=== PATIENT | female | born 1955 | race Caucasian/White ===

== ENCOUNTER 2021-08-31 10:00 | Emergency (ER) | payer OTHER ==
--- OUTSIDE RECORDS SUMMARY | 2021-08-31 10:03 | XMS REPORT | Continuity of Care Document ---
:1955 Author Organization [facility] t Address [address] [place] [address] Care Team Providers Name Role Phone MARGARET_Yunior Attending Clinician Unavailable Hal Huerta Attending Clinician Unavailable Mima Admitting Clinician Unavailable Arron Buckley Admitting Clinician Unavailable Payers Payer Name Policy Type Policy Number Effective Date Expiration Date S gema OSBORN (MEDICARE [id number] 2020 REPLACEMENT PPO) 00:00:00 Problems This patient has no known problems. Allergies, Adverse Reactions, Alerts Allergy Allergy Status Severity Reaction(s) Onset Inactive Treating Comm ents Source Name Type Date Date Clinician No Known DA Active U 2019-0 [facility] 00:[facility]: d 00 [facility] No Known DA Active U 2019-0 [facility] 00:[facility]: d 00 [facility] No Known DA Active U 2019-0 [facility] Medications This patient has no known medications. Procedures This patient has no known procedures. Encounters Start End Encounter Admission Attending Care Care Encounter Source Date/Time Date/Time Type Type Clinicians Facility Department ID 2021-08-19 Outpatient MARGARET_TY_ PRIV PRIV [id number] 02-23 [facility] 20:42:39 [place] [id number] [facility] l 2020-04-04 2020-04-04 Outpatient BRITTANY Jones [id number] [facility] 12:00:00 12:00:00 Tariq [id number] [facility] Results Test Description Test Time Test Comments Results Result [facility] e Comments PELVIC WASHING 2018-12-16 07:08:00 RUN DATE: 12/16/18 [facility] PAGE 1 RUN TIME: 903 Specimen Inquiry RUN USER: INTERFACE PATIENT: VASQUEZ WHITNEY LOC: [facility] U #: [id number] AGE/SX: 63/F ROOM: RE12/12/18REG DR: Zara Buckley MD : 55 BED: DIS: STATUS: [facility] [place]: SPEC #: [id number] RECD: 12/12/18 STATUS: MOHIT REQ #: [id number] ADALGISA: 12/12/18- SUBM DR: Zara Buckley MD ENTERED: 12/12/18 SP TYPE: PELVIC WAS OTHR DR: ORDERED: CYTOLOGY/SACCOM CODES: [id number] - PELVIC GENITAL PROCEDURES: CYTOLOGY/SACCOM (Incomplete) TISSUES: PELVIC GENITAL STRUCTURES, NOS - PELVIC WASHINGS CLINICAL HISTORY 62 year old, pelvic mass, uterine cancer (kr) FINAL DIAGNOSIS Pelvic washings (cytospins): no malignant cells identified Tissue code 1 CPT code(s): 59533 pkg/kr dt: 12/16/18 GROSS DESCRIPTION The specimen is received in a container, labeled with the patient's name and designated "pelvic washings" and consists of approximately 40 cc of clear fluid. Two cytospins are made. No cell block is prepared. hj/nano 12/15/18 @ 0736 MICROSCOPIC DESCRIPTION The specimen consists of several groups of benign mesothelial cells and unremarkable hematopoietic cells. pkg/nano dt: 12/16/18 COMMENT: The corresponding surgical pathology [id number] showed: Uterus, hysterectomy, cervix - no involvement by carcinoma endomyometrium - endometrioid carcinoma, FIGO grade 2 tumor size: 2 cm greatest dimension - no cervical stromal involvement by tumor myometrial invasion: depth of invasion 9 mm/myometrial thickness 20 mm (less than 50%) - adenomyosis present with focal involvement by carcinoma - ER, VT, and MSI testing pending on block J (Addendum CONTINUED ON NEXT PAGE RUN DATE: 12/16/18 [facility] PAGE 2 RUN TIME: 903 Specimen Inquiry RUN USER: INTERFACE SPEC #: [id number] PATIENT: VASQUEZ WHITNEYGERALD #[id number] (Continued) MICROSCOPIC DESCRIPTION (Continued) Report to follow) serosa - no pathologic diagnosis Ovary and fallopian tube, right, resection - benign simple cyst Ovary and fallopian tube, left, resection - corpora albicans gonzalo/kr dt: 12/15/18 ------- Signed Laura Reilly 12/16/18 0708 END OF REPORT UTERUS W/WO 2018-12-15 TUB/OVA 17:45:00 NEOPLASTIC RUN DATE: 12/16/18 [facility] PAGE 1 RUN TIME: 622 Specimen Inquiry RUN USER: INTERFACE PATIENT: VASQUEZ WHITNEY LOC: [facility] U #: [id number] AGE/SX: 63/F ROOM: RE12/12/18REG DR: Zara Buckley MD : 55 BED: DIS: STATUS: [facility] TLOC: SPEC #: [id number] RECD: 12/12/18 STATUS: MOHIT RE #: [id number] ADALGISA: 12/12/18- SUBM DR: Zara Buckley MD ENTERED: 12/12/18 SP TYPE: UTERNEO OTHR DR: ORDERED: LEVEL SURGIC, FROZEN SECTION, FROZEN ADD CODES: [id number] - UTERUS, NOS PROCEDURES: LEVEL SURGIC (Incomplete) FROZEN SECTION (Incomplete) FROZEN ADD (Incomplete) TISSUES: UTERUS, NOS - UTERUS, CERVIX, BILATERAL FALLOPIAN TUBES AND OVARIES CLINICAL HISTORY 62 year old, pelvic mass, uterine cancer (kr) FINAL DIAGNOSIS Uterus, hysterectomy, cervix - no involvement by carcinoma endomyometrium - endometrioid carcinoma, FIGO grade 2 tumor size: 2 cm greatest dimension - no cervical stromal involvement by tumor myometrial invasion: depth of invasion 9 mm/myometrial thickness 20 mm (less than 50%) - adenomyosis present with focal involvement by carcinoma - ER, VT, and MSI testing pending on block J (Addendum Report to follow) serosa - no pathologic diagnosis Ovary and fallopian tube, right, resection - benign simple cyst Ovary and fallopian tube, left, resection - corpora albicans ADDENDUM PENDING, SPECIMEN IS BEING SENT TO [facility] Tissue code 1 CPT code(s): 46589 cds/kr dt: 12/15/18 GROSS DESCRIPTION ANATOMIC SOURCE OF TISSUE (per Requisition): Uterus, cervix, bilateral tubes and ovaries (frozen on endometrium and right ovary) The specimen received without fixative in a container labeled with the patient's name is designated "uterus, cervix, bilateral tubes and ovaries". The specimen CONTINUED ON NEXT PAGE RUN DATE: 12/16/18 [facility] PAGE 2 RUN TIME: 622 Specimen Inquiry RUN USER: INTERFACE SPEC #: [id number] PATIENT: VASQUEZ WHITNEYGERALD #[id number] (Continued) GROSS DESCRIPTION (Continued) consists of a 93 gm, 7.5 x 4.0 x 4.0 cm intact uterus with an attached cervix, fimbriated fallopian tubes (right 8.5 cm in length and left 7.0 cm in length) and ovaries (right 7.5 x 7.5 x 3.0 cm and left 2.0 cm). The right ovarian stroma displays a 7.0 cm unilocular cystic structure containing clear serous fluid. The cyst lining is trabeculated. There are no identifiable excrescences. The cut surfaces of the cyst wall are lopez, firm, and thickened. The myometrium, directly adjacent to the posterior endometrium displays a 2.0 x 0.6 x 0.5 cm ill-defined area, which involves the inner one half of the myometrium (7 mm at 20 mm). The lesion does not appear to involve the endometrium. The uterine serosa is lopez-pink, hyperemic and slightly nodular. The 3 cm ectocervix displays a central 1 cm slit-like os. The lower uterine segment is lopez-pink and focally indurated. The endometrium is lopez and focally hemorrhagic with a thickness measuring up to 0.1 cm. The myometrium is extensively trabeculated with a wall thickness measuring up to 2.0 cm. The fallopian tubes are pink-purple and hyperemic with pin-point lumens. The ovarian stroma is lopez and firm with a few clear, serous fluid-filled unilocular cystic structures, 0.2 to 0.3 cm. Section code: FS1 - endometrium, FS2 - ovary, A through C - additional right ovarian lesion, D and E - anterior cervix, F and G - posterior cervix, H and I - remainder of anterior endomyometrium, J through L - remainder of posterior endomyometrium, M - sales representative girls' apparel sections of right fallopian tube, N - sales representative girls' apparel sections of left adnexa. obi/nano 12/12/18 @ 5020 MICROSCOPIC DESCRIPTION Permanent sections of the posterior endometrium show an endometrioid adenocarcinoma (FIGO grade 2) (architectural grade 1 and nuclear grade 2 - 3). Tumor invades the posterior myometrium to a depth of 9 mm where myometrium is 20 mm thick (inner one half). No lymphvascular invasion is identified. There is no involvement of the endocervix. Procedure: Total hysterectomy and bilateral salpingo-oophorectomy Specimen integrity: Intact Tumor site: Endometrium, posterior wall Tumor size: Greatest dimension 2 cm Histologic type: Endometrioid carcinoma, NOS Histologic grade: FIGO grade 2 Myometrial invasion: Present Depth of invasion: 9 mm/20 mm myometrial thickness - less than 50% myometrial invasion Adenomyosis: Present, uninvolved by carcinoma Uterine serosal involvement: Not identified Lower uterine segment involvement: Not identified Cervical stromal involvement: Not identified Other tissues/organ involvement: Not identified Lymphvascular space invasion: Not identified CONTINUED ON NEXT PAGE RUN DATE: 12/16/18 [facility] PAGE 3 RUN TIME: 622 Specimen Inquiry RUN USER: INTERFACE SPEC #: [id number] PATIENT: VASQUEZ WHITNEY #[id number] (Continued) MICROSCOPIC DESCRIPTION (Continued) Lymph nodes: No lymph nodes submitted Pathologic TNM classification: Primary Tumor: pT1a Regional Lymph nodes: pNx Ancillary studies: ER/VT and MSI testing on block J COMMENT: No malignancy is identified on the original frozen section. Endometrioid carcinoma is identified because the entire endometrium was submitted for completely examination histologically. Dr. Buckley was called and notified of the findings, 12/15/18, 3:00 PM. gonzalo/nano dt: 12/15/18 ------- Signed Sukhdev Simons 12/15/18 1745 END OF REPORT RITA W/WO 2018-12-15 TUB/OVA 17:45:00 NEOPLASTIC RUN DATE: 12/18/18 [facility] PAGE 1 RUN TIME: 1118 Specimen Inquiry RUN USER: INTERFACE PATIENT: VASQUEZ WHITNEY LOC: [facility] U #: [id number] AGE/SX: 63/F ROOM: RE12/12/18REG DR: Zara Buckley MD : 55 BED: DIS: STATUS: [facility] TLOC: SPEC #: [id number] RECD: 12/12/18 STATUS: SOUShravan REQ #: [id number] ADALGISA: 12/12/18- SUBM DR: Zara Buckley MD ENTERED: 12/12/18 SP TYPE: UTERNEO OTHR DR: ORDERED: LEVEL SURGIC, FROZEN SECTION, FROZEN ADD ADDENDUM FINDINGS Addendum #1 Entered: 12/18/18 The following results are received from [facility], [place], [place] on December 18, 2018. BODY SITE: Uterus [id number]-1504-J HISTOLOGY IMAGE ANALYSIS, GLOBAL INTERPRETATION: Most of the estrogen and progesterone positive staining is concentrated in a less well-differentiated portion of the tumor and the percentages below are the percentages of positive cells of the total tumor. ER: POSITIVE Tumor Stained: 20% Intensity: 3+ Internal Control: Present, positive PgR: POSITIVE Tumor Stained: 10% Intensity: 2+ Internal Control: Present, positive COMMENT: Specimen handling met the requirements specified in the latest version of the ASCO/CAP guidelines. I acknowledge the above findings. CDevaughn Simons M.D., Pathologist/ksr December 18, 2018 @ 0649 CONTINUED ON NEXT PAGE RUN DATE: 12/18/18 [facility] PAGE 2 RUN TIME: 1117 Specimen Inquiry RUN USER: INTERFACE SPEC #: [id number] PATIENT: DEVONTEVASQUEZ MAN #[id number] (Continued) ADDENDUM FINDINGS (Continued) Addendum Signed Sukhdev Simons 12/18/181117 (prelim) Sukhdev Simons 12/18/181117 CODES: [id number] - UTERUS, NOS PROCEDURES: LEVEL SURGIC (Incomplete) FROZEN SECTION (Incomplete) FROZEN ADD (Incomplete) TISSUES: UTERUS, NOS - UTERUS, CERVIX, BILATERAL FALLOPIAN TUBES AND OVARIES CLINICAL HISTORY 62 year old, pelvic mass, uterine cancer (kr) FINAL DIAGNOSIS Uterus, hysterectomy, cervix - no involvement by carcinoma endomyometrium - endometrioid carcinoma, FIGO grade 2 tumor size: 2 cm greatest dimension - no cervical stromal involvement by tumor myometrial invasion: depth of invasion 9 mm/myometrial thickness 20 mm (less than 50%) - adenomyosis present with focal involvement by carcinoma - ER, VT, and MSI testing pending on block J (Addendum Report to follow) serosa - no pathologic diagnosis Ovary and fallopian tube, right, resection - benign simple cyst Ovary and fallopian tube, left, resection - corpora albicans ADDENDUM PENDING, SPECIMEN IS BEING SENT TO [facility] Tissue code 1 CPT code(s): 43324 cds/kr dt: 12/15/18 GROSS DESCRIPTION ANATOMIC SOURCE OF TISSUE (per Requisition): Uterus, cervix, bilateral tubes and ovaries (frozen on endometrium and right ovary) The specimen received without fixative in a container labeled with the patient's name is designated "uterus, cervix, bilateral tubes and ovaries". The specimen CONTINUED ON NEXT PAGE RUN DATE: 12/18/18 [facility] PAGE 3 RUN TIME: 1118 Specimen Inquiry RUN USER: INTERFACE SPEC #: [id number] PATIENT: VASQUEZ WHITNEY #[id number] (Continued) GROSS DESCRIPTION (Continued) consists of a 93 gm, 7.5 x 4.0 x 4.0 cm intact uterus with an attached cervix, fimbriated fallopian tubes (right 8.5 cm in length and left 7.0 cm in length) and ovaries (right 7.5 x 7.5 x 3.0 cm and left 2.0 cm). The right ovarian stroma displays a 7.0 cm unilocular cystic structure containing clear serous fluid. The cyst lining is trabeculated. There are no identifiable excrescences. The cut surfaces of the cyst wall are lopez, firm, and thickened. The myometrium, directly adjacent to the posterior endometrium displays a 2.0 x 0.6 x 0.5 cm ill-defined area, which involves the inner one half of the myometrium (7 mm at 20 mm). The lesion does not appear to involve the endometrium. The uterine serosa is lopez-pink, hyperemic and slightly nodular. The 3 cm ectocervix displays a central 1 cm slit-like os. The lower uterine segment is lopez-pink and focally indurated. The endometrium is lopez and focally hemorrhagic with a thickness measuring up to 0.1 cm. The myometrium is extensively trabeculated with a wall thickness measuring up to 2.0 cm. The fallopian tubes are pink-purple and hyperemic with pin-point lumens. The ovarian stroma is lopez and firm with a few clear, serous fluid-filled unilocular cystic structures, 0.2 to 0.3 cm. Section code: FS1 - endometrium, FS2 - ovary, A through C - additional right ovarian lesion, D and E - anterior cervix, F and G - posterior cervix, H and I - remainder of anterior endomyometrium, J through L - remainder of posterior endomyometrium, M - sales representative girls' apparel sections of right fallopian tube, N - sales representative girls' apparel sections of left adnexa. obi/nano 12/12/18 @ 6449 MICROSCOPIC DESCRIPTION Permanent sections of the posterior endometrium show an endometrioid adenocarcinoma (FIGO grade 2) (architectural grade 1 and nuclear grade 2 - 3). Tumor invades the posterior myometrium to a depth of 9 mm where myometrium is 20 mm thick (inner one half). No lymphvascular invasion is identified. There is no involvement of the endocervix. Procedure: Total hysterectomy and bilateral salpingo-oophorectomy Specimen integrity: Intact Tumor site: Endometrium, posterior wall Tumor size: Greatest dimension 2 cm Histologic type: Endometrioid carcinoma, NOS Histologic grade: FIGO grade 2 Myometrial invasion: Present Depth of invasion: 9 mm/20 mm myometrial thickness - less than 50% myometrial invasion Adenomyosis: Present, uninvolved by carcinoma Uterine serosal involvement: Not identified Lower uterine segment involvement: Not identified Cervical stromal involvement: Not identified Other tissues/organ involvement: Not identified Lymphvascular space invasion: Not identified CONTINUED ON NEXT PAGE RUN DATE: 12/18/18 [facility] PAGE 4 RUN TIME: 1118 Specimen Inquiry RUN USER: INTERFACE SPEC #: [id number] PATIENT: DEVONTEVASQUEZ MOISES #[id number] (Continued) MICROSCOPIC DESCRIPTION (Continued) Lymph nodes: No lymph nodes submitted Pathologic TNM classification: Primary Tumor: pT1a Regional Lymph nodes: pNx Ancillary studies: ER/VT and MSI testing on block J COMMENT: No malignancy is identified on the original frozen section. Endometrioid carcinoma is identified because the entire endometrium was submitted for completely examination histologically. Dr. Buckley was called and notified of the findings, 12/15/18, 3:00 PM. gonzalo/nano dt: 12/15/18 ------- Signed Sukhdev Simons 12/15/18 1745 END OF REPORT UTERUS W/WO 2018-12-15 TUB/OVA 17:45:00 NEOPLASTIC RUN DATE: 12/22/18 [facility] PAGE 1 RUN TIME: 956 Specimen Inquiry RUN USER: INTERFACE PATIENT: VASQUEZ WHITNEY LOC: [facility] U #: [id number] AGE/SX: 63/F ROOM: RE12/12/18REG DR: Zara Buckley MD : 55 BED: DIS: STATUS: [facility] [place] TLOC: SPEC #: [id number] RECD: 12/12/18 STATUS: MOHIT SHAHID #: [id number] ADALGISA: 12/12/18- SUBM DR: Zara Buckley MD ENTERED: 12/12/18 SP TYPE: UTERNEO OTHR DR: ORDERED: LEVEL SURGIC, FROZEN SECTION, FROZEN ADD ADDENDUM FINDINGS Addendum #2 Entered: 12/22/18 The following is the final MSI report received from [facility], December 22, 2018. RESULTS: MSI Not Detected Instability level - Instability Not Detected COMMENTS: This tumor showed no microsatellite instability by PCR. It is unlikely that this patient has Palomo syndrome (hereditary non-polyposis colorectal cancer, HNPCC). A small percentage of uterine adenocarcinoma in HNPCC patients are microsatellite stable. Microsatellite stability in this neoplasm is typically associated with expression of the main mistmatch repair proteins (MLH1, MSH2, MSH6 and PMS2). I acknowledge the above findings. CDevaughn Simons M.D., Pathologist/ksr December 22, 2018 @ 0833 Addendum Signed Sukhdev Simons 12/22/18 0957 (prelim) Sukhdev Simons 12/22/18 0957 Addendum #1 Entered: 12/18/18-649 The following results are received from [facility], [place], [place] on December 18, 2018. BODY SITE: Uterus 19SW-1504-J HISTOLOGY IMAGE ANALYSIS, GLOBAL CONTINUED ON NEXT PAGE RUN DATE: 12/22/18 [facility] PAGE 2 RUN TIME: 57 Specimen Inquiry RUN USER: INTERFACE SPEC #: [id number] PATIENT: VASQUEZ WHITNEY #[id number] (Continued) ADDENDUM FINDINGS (Continued) INTERPRETATION: Most of the estrogen and progesterone positive staining is concentrated in a less well-differentiated portion of the tumor and the percentages below are the percentages of positive cells of the total tumor. ER: POSITIVE Tumor Stained: 20% Intensity: 3+ Internal Control: Present, positive PgR: POSITIVE Tumor Stained: 10% Intensity: 2+ Internal Control: Present, positive COMMENT: Specimen handling met the requirements specified in the latest version of the ASCO/CAP guidelines. I acknowledge the above findings. Leon Simons M.D., Pathologist/ksr December 18, 2018 @ 0649 Addendum Signed Sukhdev Valencia 12/18/18 1118 (prelim) Sukhdev Valencia 12/18/18 1118 CODES: [id number] - UTERUS, NOS PROCEDURES: LEVEL SURGIC (Incomplete) FROZEN SECTION (Incomplete) FROZEN ADD (Incomplete) TISSUES: UTERUS, NOS - UTERUS, CERVIX, BILATERAL FALLOPIAN TUBES AND OVARIES CLINICAL HISTORY 62 year old, pelvic mass, uterine cancer (kr) CONTINUED ON NEXT PAGE RUN DATE: 12/22/18 [facility] PAGE 3 RUN TIME: 956 Specimen Inquiry RUN USER: INTERFACE SPEC #: [id number] PATIENT: DEVONTEVASQUEZ MOISES #[id number] (Continued) FINAL DIAGNOSIS Uterus, hysterectomy, cervix - no involvement by carcinoma endomyometrium - endometrioid carcinoma, FIGO grade 2 tumor size: 2 cm greatest dimension - no cervical stromal involvement by tumor myometrial invasion: depth of invasion 9 mm/myometrial thickness 20 mm (less than 50%) - adenomyosis present with focal involvement by carcinoma - ER, VT, and MSI testing pending on block J (Addendum Report to follow) serosa - no pathologic diagnosis Ovary and fallopian tube, right, resection - benign simple cyst Ovary and fallopian tube, left, resection - corpora albicans ADDENDUM PENDING, SPECIMEN IS BEING SENT TO [facility] Tissue code 1 CPT code(s): 66126 cds/kr dt: 12/15/18 GROSS DESCRIPTION ANATOMIC SOURCE OF TISSUE (per Requisition): Uterus, cervix, bilateral tubes and ovaries (frozen on endometrium and right ovary) The specimen received without fixative in a container labeled with the patient's name is designated "uterus, cervix, bilateral tubes and ovaries". The specimen consists of a 93 gm, 7.5 x 4.0 x 4.0 cm intact uterus with an attached cervix, fimbriated fallopian tubes (right 8.5 cm in length and left 7.0 cm in length) and ovaries (right 7.5 x 7.5 x 3.0 cm and left 2.0 cm). The right ovarian stroma displays a 7.0 cm unilocular cystic structure containing clear serous fluid. The cyst lining is trabeculated. There are no identifiable excrescences. The cut surfaces of the cyst wall are lopez, firm, and thickened. The myometrium, directly adjacent to the posterior endometrium displays a 2.0 x 0.6 x 0.5 cm ill-defined area, which involves the inner one half of the myometrium (7 mm at 20 mm). The lesion does not appear to involve the endometrium. The uterine serosa is lopez-pink, hyperemic and slightly nodular. The 3 cm ectocervix displays a central 1 cm slit-like os. The lower uterine segment is lopez-pink and focally indurated. The endometrium is lopez and focally hemorrhagic with a thickness measuring up to 0.1 cm. The myometrium is extensively trabeculated with a wall thickness measuring up to 2.0 cm. The fallopian tubes are pink-purple and hyperemic with pin-point lumens. The ovarian stroma is lopez and firm with a few clear, serous fluid-filled unilocular cystic structures, 0.2 to 0.3 cm. Section code: FS1 - endometrium, FS2 - ovary, A through C - additional right ovarian lesion, D and E - anterior cervix, F and G - posterior cervix, H and I - CONTINUED ON NEXT PAGE RUN DATE: 12/22/18 [facility] PAGE 4 RUN TIME: 956 Specimen Inquiry RUN USER: INTERFACE SPEC #: [id number] PATIENT: VASQEUZ WHITNEY #[id number] (Continued) GROSS DESCRIPTION (Continued) remainder of anterior endomyometrium, J through L - remainder of posterior endomyometrium, M - sales representative girls' apparel sections of right fallopian tube, N - sales representative girls' apparel sections of left adnexa. obi/nano 12/12/18 @ 1013 MICROSCOPIC DESCRIPTION Permanent sections of the posterior endometrium show an endometrioid adenocarcinoma (FIGO grade 2) (architectural grade 1 and nuclear grade 2 - 3). Tumor invades the posterior myometrium to a depth of 9 mm where myometrium is 20 mm thick (inner one half). No lymphvascular invasion is identified. There is no involvement of the endocervix. Procedure: Total hysterectomy and bilateral salpingo-oophorectomy Specimen integrity: Intact Tumor site: Endometrium, posterior wall Tumor size: Greatest dimension 2 cm Histologic type: Endometrioid carcinoma, NOS Histologic grade: FIGO grade 2 Myometrial invasion: Present Depth of invasion: 9 mm/20 mm myometrial thickness - less than 50% myometrial invasion Adenomyosis: Present, uninvolved by carcinoma Uterine serosal involvement: Not identified Lower uterine segment involvement: Not identified Cervical stromal involvement: Not identified Other tissues/organ involvement: Not identified Lymphvascular space invasion: Not identified Lymph nodes: No lymph nodes submitted Pathologic TNM classification: Primary Tumor: pT1a Regional Lymph nodes: pNx Ancillary studies: ER/VT and MSI testing on block J COMMENT: No malignancy is identified on the original frozen section. Endometrioid carcinoma is identified because the entire endometrium was submitted for completely examination histologically. Dr. Buckley was called and notified of the findings, 12/15/18, 3:00 PM. gonzalo/nano dt: 12/15/18 ------- Signed Sukhdev Simons 12/15/18 1745 END OF REPORT - XR CHEST 2 V 2018-12-08 Patient Name: 13:52:00 VASQUEZ WHITNEY Unit No: [id number] EXAMS: CPT CODE: [id number] XR CHEST 2 V [id number] CHEST RADIOGRAPHS - PA AND LATERAL: COMPARISON: None CLINICAL HISTORY: PRE-OP uterine cancer The cardiopericardial silhouette is within normal limits. Lungs are clear. No vascular congestion or pneumothorax. There are spondylotic changes in the thoracic spine. IMPRESSION: No acute pulmonary abnormality. at 1354 Reported and signed by: Mohit Beach MD CC: Zara Buckley Technologist: RT Patricia Trnscrbd D/ ([id number]) [id number] Orig Print D/T: S: 12/08/2018 (0027) [facility] NAME: VASQUEZ WHITNEY MOISES Radiology Department PHYS: Zara Durán MD [address] : 1955 AGE: 62 SEX: F [place], [place] [address] LOC: [facility] PHONE #: [phone] EXAM DATE: 12/08/2018 STATUS: PRE SD FAX #: [phone] RAD NO: [id number] Page 1 Signed Report
--- NOTE | 2021-08-31 10:53 | EDPHYS ---
Physician Documentation [facility] Name: Glory Troncoso Age: 65 yrs Sex: Female : 1955 Arrival Date: 08/31/2021 Time: 10:01 Bed 20 Private MD: Claude Worrell B ED Physician Kimmie Swan HPI: 08/31 10:51 This 65 yrs old Female presents to ER via Ambulatory with complaints of Sore Throat. ma2 10:51 The patient presents with sore throat. The patient describes throat pain as constant. ma2 Onset: The symptoms/episode began/occurred suddenly, 1 day(s) ago. Severity of symptoms: At their worst the symptoms were mild, in the emergency department the symptoms are unchanged. The patient has not experienced similar symptoms in the past. Historical: - Allergies: 10:13 No Known Allergies; vg1 - Home Meds: 10:13 Lunesta oral [Active]; Clonazepam Oral [Active]; Lexapro Oral [Active]; vg1 - PMHx: 10:13 Anxiety; Depressive disorder; vg1 - Immunization history:: Client reports receiving the 2nd dose of the Covid vaccine. - Social history:: Smoking status: Patient denies any tobacco usage or history of. Patient/guardian denies using alcohol, street drugs, The patient lives with family. - Family history:: not pertinent. ROS: 10:51 Constitutional: Negative for fever, chills, and weight loss. ma2 10:51 All other systems are negative. Exam: 10:51 Constitutional: This is a well developed, well nourished patient who is awake, alert, ma2 and in no acute distress. Head/Face: Normocephalic, atraumatic. Eyes: Pupils equal round and reactive to light, extra-ocular motions intact. Lids and lashes normal. Conjunctiva and sclera are non-icteric and not injected. Cornea within normal limits. Periorbital areas with no swelling, redness, or edema. ENT: tonsillitis, otherwise Nares patent. No nasal discharge, no septal abnormalities noted. Tympanic membranes are normal and external auditory canals are clear. Oropharynx with no redness, swelling, or masses, exudates, or evidence of obstruction, uvula midline. Mucous membranes moist. Neck: Trachea midline, no thyromegaly or masses palpated, and no cervical lymphadenopathy. Supple, full range of motion without nuchal rigidity, or vertebral point tenderness. No Meningismus. Chest/axilla: Normal chest wall appearance and motion. Nontender with no deformity. No lesions are appreciated. Cardiovascular: Regular rate and rhythm with a normal S1 and S2. No gallops, murmurs, or rubs. Normal PMI, no JVD. No pulse deficits. Respiratory: Lungs have equal breath sounds bilaterally, clear to auscultation and percussion. No rales, rhonchi or wheezes noted. No increased work of breathing, no retractions or nasal flaring. Back: No spinal tenderness. No costovertebral tenderness. Full range of motion. Vital Signs: 10:11 BP 122 / 77; Pulse 87; Resp 16; Temp 98.4; Pulse Ox 100% ; Weight 56.7 kg; Height 5 ft. vg1 2 in. (157.48 cm); Pain 5/10; 10:15 BP 128 / 81; Pulse 85; Resp 16; Pulse Ox 99% on R/A; sl2 11:30 BP 115 / 75; Pulse 85; Resp 18; Pulse Ox 100% ; sl2 10:11 Body Mass Index 22.86 (56.70 kg, 157.48 cm) vg1 MDM: 10:12 Patient medically screened. ma2 10:51 Differential diagnosis: bronchitis, mononucleosis, pharyngitis. Data reviewed: vital ga2 signs, nurses notes. Counseling: I had a detailed discussion with the patient and/or guardian regarding: the historical points, exam findings, and any diagnostic results supporting the discharge/admit diagnosis, the presence of at least one elevated blood pressure reading (>120/80) during this emergency department visit, the need for outpatient follow up. Response to treatment: the patient's symptoms have markedly improved after treatment. 08/31 10:13 Order name: Strep; Complete Time: 10:50 em1 Administered Medications: 11:06 Drug: Augmentin (Amoxicillin-Clavulanate) 875 mg Route: PO; sl2 11:20 Follow up: Response: No adverse reaction 2 11:06 Drug: Augmentin (Amoxicillin-Clavulanate) 875 mg Route: PO; sl2 11:20 Follow up: Response: No adverse reaction 2 Disposition Summary: 08/31/21 10:53 Discharge Ordered Location: Home ma2 Condition: Stable ma2 Diagnosis - Streptococcal tonsillitis ma2 Followup: ma2 - With: Private Physician - When: Tomorrow - Reason: If symptoms return Discharge Instructions: - Discharge Summary Sheet ma2 - Strep Throat, Adult, [id number] ma2 Forms: - Medication Reconciliation Form ma2 - Thank You Letter ma2 - Antibiotic Education ma2 - Prescription Opioid Use ma2 Prescriptions: - Augmentin 875-125 mg Oral Tablet - take 1 tablet by ORAL route every 12 hours for 10 days; 20 tablet; Refills: 0, ma2 Product Selection Permitted Signatures: Dispatcher [employer] EDKimmie Leary MD MD ma2 Maria Guadalupe Landon RN RN vg1 Edelmira Salazar RN RN sl2
--- NOTE | 2021-08-31 10:53 | ER ---
Nurse's Notes [facility] Name: Glory Troncoso Age: 65 yrs Sex: Female : 1955 Arrival Date: 08/31/2021 Time: 10:01 Bed 20 Private MD: Claude Worrell B Diagnosis: Streptococcal tonsillitis Presentation: 08/31 10:11 Chief complaint: Patient states: Sore throat since yesterday. States hurts when taking vg1 a swallow and states 'throat feels swollen'. Denies cough or congestion. Coronavirus screen: Vaccine status: Patient reports receiving the 2nd dose of the covid vaccine. Client denies travel out of the [place] in the last 14 days. Ebola Screen: Patient negative for fever greater than or equal to 101.5 degrees Fahrenheit, and additional compatible Ebola Virus Disease symptoms. Initial Sepsis Screen: Does the patient meet any 2 criteria? No. Patient's initial sepsis screen is negative. Does the patient have a suspected source of infection? No. Patient's initial sepsis screen is negative. Risk Assessment: Do you want to hurt yourself or someone else? Patient reports no desire to harm self or others. Onset of symptoms was August 30, 2021. 10:11 Method Of Arrival: Ambulatory vg1 10:11 Acuity: RAQUEL 4 vg1 Triage Assessment: 10:13 General: Appears in no apparent distress. comfortable, Behavior is calm, cooperative. vg1 Pain: Complains of pain in throat. EENT: Throat is reddened has patchy exudate has enlarged tonsils. Historical: - Allergies: 10:13 No Known Allergies; vg1 - Home Meds: 10:13 Lunesta oral [Active]; Clonazepam Oral [Active]; Lexapro Oral [Active]; vg1 - PMHx: 10:13 Anxiety; Depressive disorder; vg1 - Immunization history:: Client reports receiving the 2nd dose of the Covid vaccine. - Social history:: Smoking status: Patient denies any tobacco usage or history of. Patient/guardian denies using alcohol, street drugs, The patient lives with family. - Family history:: not pertinent. Screenin:35 Abuse screen: Denies threats or abuse. Denies injuries from another. sl2 10:35 Nutritional screening: No deficits noted. Tuberculosis screening: No symptoms or risk sl2 factors identified. Fall Risk None identified. Assessment: 10:30 Respiratory: Airway is patent Trachea midline Respiratory effort is even, unlabored, sl2 Breath sounds are clear bilaterally. Vital Signs: 10:11 BP 122 / 77; Pulse 87; Resp 16; Temp 98.4; Pulse Ox 100% ; Weight 56.7 kg; Height 5 ft. vg1 2 in. (157.48 cm); Pain 5/10; 10:15 BP 128 / 81; Pulse 85; Resp 16; Pulse Ox 99% on R/A; sl2 11:30 BP 115 / 75; Pulse 85; Resp 18; Pulse Ox 100% ; sl2 10:11 Body Mass Index 22.86 (56.70 kg, 157.48 cm) vg1 ED Course: 10:01 Patient arrived in ED. ds1 10:01 Claude Worrell MD is Private Physician. ds1 10:12 Kimmie Swan MD is Attending Physician. ma2 10:13 Triage completed. vg1 10:13 Arm band placed on. vg1 10:19 Strep swab sent to lab. 5 10:20 Patient has correct armband on for positive identification. Bed in low position. Call 5 light in reach. Pulse ox on. NIBP on. 10:20 Strep Sent. 5 10:35 No provider procedures requiring assistance completed. Inserted sl2 10:37 Edelmira Salazar, COLBY is Primary Nurse. sl2 Administered Medications: 11:06 Drug: Augmentin (Amoxicillin-Clavulanate) 875 mg Route: PO; sl2 11:20 Follow up: Response: No adverse reaction sl2 11:06 Drug: Augmentin (Amoxicillin-Clavulanate) 875 mg Route: PO; sl2 11:20 Follow up: Response: No adverse reaction sl2 Outcome: 10:53 Discharge ordered by . ma2 11:40 Discharged to home ambulatory. sl2 11:40 Condition: stable 11:40 Discharge instructions given to patient, Instructed on discharge instructions, follow up and referral plans. medication usage, Demonstrated understanding of instructions, follow-up care, medications, Prescriptions given X 1. 11:50 Patient left the ED. sl2 Signatures: Lizeth Watson ds1 Ramona Villatoro 5 Kimmie Swan MD MD la2 Maria Guadalupe Landon RN RN vg1 Edelmira Salazar, COLBY RN sl2
[2021-08-31] MEDS ORDERED: AMOX/K CLAV 875 MG TAB ONE (11:02)
[2021-08-31 12:14] VITALS: TEMP 98.4
[2021-08-31 12:16] VITALS: BP 115/75; O2SAT 100
== END 2021-08-31 11:50 | disposition home or self-care (01) ==
LOC: ER 10:00
DX: J03.00 Acute streptococcal tonsillitis, unspecified (principal); F32.A Depression, unspecified
CPT/HCPCS: 87081; 99284

== ENCOUNTER 2025-01-14 19:27 | Emergency (ER) | payer OTHER ==
[2025-01-14] MEDS ORDERED: ACETAMINOPHEN 500 MG TAB ONE (21:26)
--- NOTE | 2025-01-14 22:03 | RAD REPORT ---
EXAM: CT brain without contrast HISTORY: fall COMPARISON: None TECHNIQUE: Multiple contiguous axial images were obtained and a CT of the brain without contrast. Sag ittal and coronal reformats were performed. FINDINGS: No evidence of hydrocephalus, intracranial hemorrhage, or extra-axial fluid collection. The brain is normal in morphology. The calvarium is intact. The visualized paranasal sinuses and mastoid air cells are essentially clear . IMPRESSION: No evidence of acute intracranial abnormality. EXAM: CT of the cervical spine without contrast HISTORY: fall COMPARISON: None TECHNIQUE: Multiple contiguous axial images were obtained in a CT of the cervical spine without contr ast. Sagittal and coronal reformats were performed. FINDINGS: The vertebral bodies demonstrate normal height and alignment. No evidence of acute fracture or subluxation.. Facet arthropathy most pronounced at C3-4 on the left, and C4-5 on the right, with milder uncovertebral joint spurring, contributing to up to moderate degrees of neural foraminal narrowing at those levels. No prevertebral soft tissue swelling is seen. The posterior facets are well aligned. Normal alignment of the skull base with the cervical spine is seen. The lung apices are unremarkable. IMPRESSION: No evidence of acute osseous abnormality of the cervical spine. Degenerative changes as above.
--- NOTE | 2025-01-14 22:06 | RAD REPORT ---
EXAMINATION: CT MAXILLOFACIAL WITHOUT CONTRAST CLINICAL INDICATION: [facility] MAIN fall Bed Name: IW2 TECHNIQUE: Axial images were obtained through the facial bones and orbits without intravenous contras t. Sagittal and coronal reconstructions were created from the data. One or more of the following dose reduction techniques were used: Automated exposure control, adjustment of the mA and/or kV accor ding to patient size, and/or iterative reconstruction. Unless otherwise specified, incidental findings do not require dedicated imaging follow-up. COMPARISON: No prior exam. FINDINGS: SOFT TISSUE: Mild left supraorbital soft tissue swelling. BONES: No evidence of acute displaced fracture, dislocation, or aggressive osseous lesions. Mild irre gularity along the right nasal bone with no underlying soft tissue swelling, of indeterminate age. No lesion of the visualized skull base or calvarium. Rightward nasal septal deviation contacting the inferior turbinate. ORBITS: The globes are intact. No intraorbital hemorrhage or mass. SINUSES: The paranasal sinuses and tympanomastoid cavities are predominantly clear. IMPRESSION: Mild irregularity along the right nasal bone, may suggest minimally displaced fracture of indetermina te age. Mild left supraorbital soft tissue swelling
--- NOTE | 2025-01-14 22:40 | ER ---
Nurse's Notes [facility] Name: Glory Troncoso Age: 69 yrs Sex: Female : 1955 Arrival Date: 01/14/2025 Time: 19:27 Bed 10 Private MD: Diagnosis: Fracture of nasal bones;Contusion of unspecified part of head, initial encounter;Fall on same level from slipping, tripping and stumbling with subsequent striking against object Presentation: 01/14 20:31 Chief complaint: Patient states: tripped and fell on face landing on hard wood floor. lg3 denies LOC. pain to nose and forehead. Coronavirus screen: Client denies travel out of the [place] in the last 14 days. At this time, the client does not indicate any symptoms associated with coronavirus-19. Ebola Screen: No symptoms or risks identified at this time. Mechanism of Injury:. Initial Sepsis Screen: Does the patient meet any 2 criteria? No. Patient's initial sepsis screen is negative. Does the patient have a suspected source of infection? No. Patient's initial sepsis screen is negative. Risk Assessment: Do you want to hurt yourself or someone else? Patient reports no desire to harm self or others. Onset of symptoms was January 14, 2025. 20:31 Method Of Arrival: Ambulatory lg3 20:31 Acuity: RAQUEL 3 lg3 20:33 Mechanism of Injury: The problem was sustained at home, resulted from a fall, from a lg3 standing position. Triage Assessment: 20:34 General: Appears in no apparent distress. comfortable, Behavior is calm, cooperative. lg3 Pain: Complains of pain in nose. EENT: Reports pain in nose. Neuro: No deficits noted. Gil Agitation-Sedation Scale (RASS): 0 - Alert and Calm Level of Consciousness is awake, alert, obeys commands, Oriented to person, place, time, situation, Reports headache. Cardiovascular: No deficits noted. Denies chest pain, shortness of breath, Capillary refill < 3 seconds Clubbing of nail beds is absent JVD is absent Patient's skin is warm and dry. Respiratory: No deficits noted. Airway is patent Respiratory effort is even, unlabored, Respiratory pattern is regular, symmetrical. GI: No deficits noted. No signs and/or symptoms were reported involving the gastrointestinal system. : No signs and/or symptoms were reported regarding the genitourinary system. Derm: Skin is intact, is healthy with good turgor, Skin is dry, Skin is normal, Skin temperature is warm. Musculoskeletal: Circulation, motion, and sensation intact. Range of motion: intact in all extremities, Swelling present in forehead. Historical: - Allergies: 20:34 No Known Allergies; lg3 - PMHx: 20:34 Anxiety; depressive disorder; lg3 - PSHx: 20:34 None; lg3 - Immunization history:: Adult Immunizations up to date. - Infectious Disease History:: Denies. - Social history:: Smoking status: Patient denies any tobacco usage or history of. Patient uses alcohol, occasionally. Patient/guardian denies using street drugs. Screenin:31 [facility] ED Fall Risk Assessment (Adult) History of falling in the last 3 months, lg3 including since admission Yes- single mechanical fall (1 pt) Confusion or Disorientation No (0 pts) Intoxicated or Sedated No (0 pts) Impaired Gait No (0 pts) Mobility Assist Device Used No (0 pt) Altered Elimination No (0 pt) Score/Fall Risk Level 0 - 2 = Low Risk Oriented to surroundings, Maintained a safe environment, Educated pt \T\ family on fall prevention, incl call for assistance when getting out of bed, Assessed \T\ reinforced patient's understanding of fall precautions. Abuse screen: Denies threats or abuse. Denies injuries from another. Nutritional screening: No deficits noted. Tuberculosis screening: No symptoms or risk factors identified. Assessment: 20:31 General: see triage assessment. lg3 23:10 General: Appears in no apparent distress. comfortable, Behavior is calm, cooperative. al5 Pain: Complains of pain in forehead and nose Pain currently is 2 out of 10 on a pain scale. Neuro: Level of Consciousness is awake, alert, obeys commands, Oriented to person, place, time, situation. Cardiovascular: Capillary refill < 3 seconds Patient's skin is warm and dry. Respiratory: Airway is patent Respiratory effort is even, unlabored, Respiratory pattern is regular, symmetrical. GI: No signs and/or symptoms were reported involving the gastrointestinal system. : No signs and/or symptoms were reported regarding the genitourinary system. EENT: No signs and/or symptoms were reported regarding the EENT system. Derm: Skin is intact, abrasion to nose and forehead. Musculoskeletal: No signs and/or symptoms reported regarding the musculoskeletal system. Vital Signs: 20:31 BP 128 / 78; Pulse 63; Resp 15 S; Temp 97.9(O); Weight 63.5 kg (R); Height 5 ft. 2 in. lg3 (R); Pain 2/10; 23:09 BP 120 / 80; Pulse 61; Resp 16; Pulse Ox 100% ; al5 20:31 Body Mass Index 25.61 (63.50 kg, 157.48 cm) lg3 20:31 Pain Scale: Adult lg3 Radha Coma Score: 20:33 Eye Response: spontaneous(4). Motor Response: obeys commands(6). Verbal Response: lg3 oriented(5). Total: 15. 20:50 Eye Response: spontaneous(4). Motor Response: obeys commands(6). Verbal Response: cp oriented(5). Total: 15. ED Course: 19:29 Patient arrived in ED. im 19:57 Red Ashford PA is PHCP. cp 19:57 Julian Manzo DO is Attending Physician. cp 20:31 [facility], [facility] gait. lg3 20:31 Patient has correct armband on for positive identification. Family accompanied patient. lg3 20:31 Patient maintains SpO2 saturation greater than 95% on room air. lg3 20:33 Triage completed. lg3 20:34 Arm band placed on left wrist. lg3 21:10 CT Head C Spine In Process Unspecified. EDMS 21:10 CT Facial Bones W/O Con In Process Unspecified. EDMS 22:37 Sonia Yepez MD is Referral Physician. cp 22:48 Kelsey Call, COLBY is Primary Nurse. al5 23:11 Provided Education on: dc follow up. al5 23:11 No provider procedures requiring assistance completed. Patient did not have IV access al5 during this emergency room visit. Administered Medications: 21:29 Drug: Acetaminophen PO 1000 mg PO once Route: PO; vc1 23:13 Follow up: Response: No adverse reaction; Pain is decreased al5 Medication: 20:31 VIS not applicable for this client. lg3 Outcome: 22:39 Discharge ordered by . cp 23:12 Discharged to home ambulatory, with significant other, al5 23:12 Condition: good 23:12 Discharge instructions given to patient, Instructed on discharge instructions, follow up and referral plans. medication usage, Demonstrated understanding of instructions, follow-up care, medications, Prescriptions given X 1, 23:12 Patient left the ED. al5 Signatures: Dispatcher [employer] EDMS Red Ashford PA PA cp Able, Lacie RN RN lg3 Juany Mcgee RN RN vc1 Claudia Babcock Amanda RN RN al5
--- NOTE | 2025-01-14 22:40 | EDPHYS ---
Physician Documentation [facility] Name: Glory Troncoso Age: 69 yrs Sex: Female : 1955 Arrival Date: 01/14/2025 Time: 19:27 Bed 10 Private MD: ED Physician Julian Manzo HPI: 01/14 20:50 This 69 yrs old Female presents to ER via Ambulatory with complaints of Head cp Injury-Adult, Facial Injury. 20:50 The patient or guardian reports injury. The complaints affect the forehead and nose. cp Context of injury: The problem was sustained at home, resulted from trip and fall. Onset: The symptoms/episode began/occurred today. Patient reports trip and fall causing her to strike head and face against hardware floor. Historical: - Allergies: 20:34 No Known Allergies; lg3 - PMHx: 20:34 Anxiety; depressive disorder; lg3 - PSHx: 20:34 None; lg3 - Immunization history:: Adult Immunizations up to date. - Infectious Disease History:: Denies. - Social history:: Smoking status: Patient denies any tobacco usage or history of. Patient uses alcohol, occasionally. Patient/guardian denies using street drugs. ROS: 20:55 Constitutional: Negative for body aches, chills, fever, poor PO intake, cp 20:55 Eyes: Negative for injury, pain, redness, and discharge, cp 20:55 ENT: Positive for nose pain, 20:55 Neck: Negative for pain with movement, pain at rest, stiffness, 20:55 Cardiovascular: Negative for chest pain, palpitations, 20:55 Respiratory: Negative for cough, shortness of breath, wheezing, 20:55 Abdomen/GI: Negative for abdominal pain, vomiting, diarrhea, constipation, 20:55 Back: Negative for pain at rest, pain with movement, 20:55 Neuro: Negative for altered mental status, loss of consciousness, syncope, near syncope, 20:55 All other systems are negative, Exam: 21:00 Constitutional: The patient appears in no acute distress, alert, awake, cp non-diaphoretic, non-toxic, well developed, well nourished, 21:00 Head/face: Noted is swelling, that is mild, of the forehead and nose, tenderness, that cp is moderate, of the nose, Sinus tenderness, that is mild, is located over the right maxillary sinus, 21:00 Eyes: Periorbital structures: appear normal, Pupils: equal, round, and reactive to light and accomodation, Extraocular movements: intact throughout, Conjunctiva: normal, no exudate, no injection, Sclera: no appreciated abnormality, Lids and lashes: appear normal, bilaterally, 21:00 ENT: External ear(s): are unremarkable, Nose: External nose: contusion is noted, swelling is noted, Nasal septum: no septal hematoma appreciated, bleeding, is not appreciated, Mouth: Lips: moist, Oral mucosa: moist, Posterior pharynx: Airway: no evidence of obstruction, patent, Dental exam: normal, 21:00 Neck: C-spine: vertebral tenderness, is not appreciated, crepitus, is not appreciated, 21:00 Chest/axilla: Inspection: normal, 21:00 Cardiovascular: Rate: normal, Rhythm: regular, 21:00 Respiratory: the patient does not display signs of respiratory distress, Respirations: normal, no use of accessory muscles, no retractions, labored breathing, is not present, Breath sounds: are clear throughout, no decreased breath sounds, no stridor, no wheezing, 21:00 Abdomen/GI: Inspection: abdomen appears normal, Palpation: abdomen is soft and non-tender, in all quadrants, 21:00 Neuro: Orientation: to person, place \T\ time. Mentation: is normal, Motor: moves all fours, strength is normal, Sensation: is normal, Gait: is steady, at a normal pace, without difficulty, Vital Signs: 20:31 BP 128 / 78; Pulse 63; Resp 15 S; Temp 97.9(O); Weight 63.5 kg (R); Height 5 ft. 2 in. lg3 (R); Pain 2/10; 23:09 BP 120 / 80; Pulse 61; Resp 16; Pulse Ox 100% ; al5 20:31 Body Mass Index 25.61 (63.50 kg, 157.48 cm) lg3 20:31 Pain Scale: Adult lg3 Yoder Coma Score: 20:33 Eye Response: spontaneous(4). Motor Response: obeys commands(6). Verbal Response: lg3 oriented(5). Total: 15. 20:50 Eye Response: spontaneous(4). Motor Response: obeys commands(6). Verbal Response: cp oriented(5). Total: 15. MDM: 20:41 Medical Screening Exam initiated cp 22:00 Differential diagnosis: Contusion of Hematoma on Intracranial bleed- Concussion cp cerebral contusion. 22:38 Data reviewed: vital signs, nurses notes, radiologic studies, CT scan, and as a result, cp I will discharge patient. 22:38 Counseling: I had a detailed discussion with the patient and/or guardian regarding the cp historical points, exam findings, and any diagnostic results supporting the discharge/admit diagnosis, radiology results, to return to the emergency department if symptoms worsen or persist or if there are any questions or concerns that arise at home. Special discussion: Based on the patient's history, exam and DX evaluation, there is no indication for emergent intervention or inpatient TX. It is understood by the patient/guardian that if the SXs persist or worsen they need to return immediately for re-evaluation. 01/14 20:42 Order name: CT Head C Spine; Complete Time: 22:31 cp 01/14 20:42 Order name: CT Facial Bones W/O Con; Complete Time: 22:31 cp Administered Medications: 21:29 Drug: Acetaminophen PO 1000 mg PO once Route: PO; vc1 23:13 Follow up: Response: No adverse reaction; Pain is decreased al5 Disposition: 01/15 16:53 Chart complete. cp Disposition Summary: 01/14/25 22:39 Discharge Ordered Notes: Location: Home cp Problem: new cp Symptoms: have improved cp Condition: Stable cp Diagnosis - Fracture of nasal bones cp - Contusion of unspecified part of head, initial encounter cp - Fall on same level from slipping, tripping and stumbling with subsequent striking cp against object Followup: cp - With: Sonia Yepez MD - When: 5 - 6 days - Reason: nose fracture Discharge Instructions: - Discharge Summary Sheet cp - Facial or Scalp Contusion cp - Head Injury, Adult cp - Nasal Fracture cp Forms: - Medication Reconciliation Form cp - Antibiotic Education cp - Prescription Opioid Use cp - Patient Portal Instructions cp - Leadership Thank You Letter cp Prescriptions: - Ibuprofen 800 mg Oral Tablet - take 1 tablet ORAL route every 8 hours As needed take with food; 30 tablet; cp Refills: 0, Product Selection Permitted Signatures: Dispatcher MedHeadCount EDOR Red [place] PA PA cp Able, Lacie, RN RN lg3 Juany Mcgee RN RN vc1 Kelsey Call RN al5 Corrections: (The following items were deleted from the chart) 01/14 20:42 20:42 Head C Spine MPR Wo Con+CT.RAD.BRZ ordered. EDMS EDMS 20:42 20:42 Facial Bones W/ MPR+CT.RAD.BRZ ordered. EDMS EDMS
[2025-01-15 00:25] VITALS: TEMP 97.9
[2025-01-15 00:26] VITALS: BP 120/80; O2SAT 100
== END 2025-01-14 23:12 | disposition home or self-care (01) ==
LOC: ER 19:27
DX: S02.2XXA Fracture of nasal bones, initial encounter for closed fracture (principal); W01.198A Fall on same level from slipping, tripping and stumbling with subsequent striking against other object, initial encounter
CPT/HCPCS: 70450; 70486; 72125; 76377; 99283